=== PATIENT | female | born 1995 | race Two or more races ===

== ENCOUNTER 2020-07-30 13:41 | Outpatient (CLI) | payer OTHER, SELFPAY ==
[2020-07-30] MEDS: TETANUS,DIPHTHERIA,AC PERTUSSIS ADULT (0.5 ML) BOOSTRIX IM (14:28)
== END 2020-07-30 13:42 | disposition home or self-care (01) ==
PROVIDERS: Visit Provider Obstetrics & Gynecology
DX: Z23 Encounter for immunization (principal)
CPT/HCPCS: 90715

== ENCOUNTER 2020-08-21 06:08 | Inpatient (IN) | payer OTHER, SELFPAY ==
[2020-08-21] VITALS (141 sets, daily range): BP systolic 103–161; BP diastolic 50–119; PULSE 68–115; RESP 16; TEMP 36.4–37.2; O2SAT 97–100; BMI 44.2
[2020-08-21 07:05] LABS: Basophils Absolute Auto 0.1 K/mm3 (0.0-0.1); Basophils Percent Auto 0.5 % (0.2-1.2); Eosinophils Absolute Auto 0.2 K/mm3 (0-0.3); Eosinophils Percent Auto 1.5 % (0-4.4); Hematocrit 35.3 % (37.0-47.0); Immature Granulocyte Absolute 0.07 K/mm3 (0.00-0.031); Immature Granulocyte Percent A 0.6 % (0-0.5); Lymphocytes Absolute Auto 2.59 K/mm3 (0.9-3.2); Lymphocytes Percent Auto 23.5 % (18.3-44.2); Mean Corpuscular Hemoglobin 32.3 pg (26-34); Mean Corpuscular Volume 95.1 fl (80-100); Mean Platelet Volume 9.6 fl (7.4-10.4); Monocytes Absolute Auto 0.8 K/mm3 (0.1-0.6); Monocytes Percent Auto 7.1 % (2.6-8.5); Neutrophils Absolute Auto 7.4 K/mm3 (1.3-6.7); Neutrophils Percent Auto 66.8 % (45.5-73.1); Platelet Count Result 279 k/mm3 (150-375); Red Blood Count 3.71 M/mm3 (4.2-5.4); Red Cell Distribution Width 13.5 % (11.5-14.5)
[2020-08-21] MEDS: LACTATED RINGERS 1,000 ML 125 ML IV CONT ×3 (07:10→12:56)
[2020-08-21] MEDS: OXYTOCIN 30 UNITS/NS 500 ML 30 UNITS/500 ML BAG IV CONT (07:10)
[2020-08-21 07:17] LABS: Alanine Aminotransferase 23 U/L (4-35); Albumin Level 3.5 g/dL (3.5-5.1); Alkaline Phosphatase 143 U/L (38-126); Anion Gap 6 mmol/L (8-16); Aspartate Amino Transferase 28 U/L (14-36); Bilirubin,Total 0.2 mg/dL (0.2-1.3); Blood Urea Nitrogen 10 mg/dL (7-17); Calcium 8.8 mg/dL (8.4-10.2); Carbon Dioxide 22 mmol/L (22-30); Chloride 108 mmol/L (98-107); Estimated Glomerular Filt Rate > 60; Glucose 95 mg/dL (65-105); Potassium 3.7 mmol/L (3.4-5.0); Sodium 136 mmol/L (137-145)
[2020-08-21 07:23] LABS: Amphetamine Screen Urine Negative (Negative); Barbiturate Screen Urine Negative (Negative); Benzodiazepines Screen Urine Negative (Negative); Cannabinoid Screen Urine Positive (Negative); Cocaine Screen Urine Negative (Negative); Methadone Screen Urine Negative (Negative); Opiate Screen Urine Negative (Negative); Phencyclidine Screen Urine Negative (Negative)
[2020-08-21 08:06] LABS: HIV 1/2 Ab P24 Ag Result Negative (Negative)
--- NOTE | 2020-08-21 08:56 | WPDANESEPP ---
Anes - Eval Pre Procedure Procedure: labor epidural Date/Time: 08/21/20 08:56 Preop Diagnosis: labor pain Pre Op Diagnosis: Induction of Labor Patient Data Age: 25 Gender: F Height: 5 ft 3 in Weight: 113.4 kg Last Vital Signs Pulse 78 08/21/20 08:30 BP 143/88 H 08/21/20 08:30 Pulse Ox 100 08/21/20 08:55 Allergies Allergy/AdvReac Type Severity Reaction Status Date / Time No Known Allergies Allergy Verified 08/21/20 08:13 Home Medications Medication Instructions Recorded Confirmed Type vitamin no.[id number] 1 cap PO DAILY #90 cap 01/23/20 08/21/20 Rx 28 mg iron-1 mg-200 mg capsule Laboratory Tests 08/21/20 08/21/20 08/21/20 06:49 06:49 06:49 WBC 11.0 K/mm3 H K/mm3 (4.5-10.0) RBC 3.71 M/mm3 L M/mm3 (4.2-5.4) Hgb 12.0 g/dL g/dL (12.0-15.0) Hct 35.3 % L % (37.0-47.0) MCV 95.1 fl fl (80-100) MCH 32.3 pg pg (26-34) MCHC 34.0 g/dl g/dl (32-36) RDW 13.5 % % (11.5-14.5) Plt Count 279 k/mm3 k/mm3 (150-375) MPV 9.6 fl fl (7.4-10.4) Immature Gran % (Auto) 0.6 % H % (0-0.5) Neut % (Auto) 66.8 % % (45.5-73.1) Lymph % (Auto) 23.5 % % (18.3-44.2) Wake % (Auto) 7.1 % % (2.6-8.5) Eos % (Auto) 1.5 % % (0-4.4) Baso % (Auto) 0.5 % % (0.2-1.2) Lymph # (Auto) 2.59 K/mm3 K/mm3 (0.9-3.2) Wake # (Auto) 0.8 K/mm3 H K/mm3 (0.1-0.6) Eos # (Auto) 0.2 K/mm3 K/mm3 (0-0.3) Baso # (Auto) 0.1 K/mm3 K/mm3 (0.0-0.1) Abs Immat Gran (auto) 0.07 K/mm3 H K/mm3 (0.00-0.031) Absolute Neuts (auto) 7.4 K/mm3 H K/mm3 (1.3-6.7) Absolute Nucleated RBC 0.0 K/mm3 K/mm3 (0.0-0.012) Nucleated RBC % 0.0 % % (0.0-0.2) Sodium Potassium Chloride Carbon Dioxide Anion Gap BUN Creatinine Estim Creat Clear Calc Estimated GFR Glucose Calcium Total Bilirubin AST ALT Alkaline Phosphatase Total Protein Albumin Urine Opiates Screen Urine Methadone Screen Ur Barbiturates Screen Ur Phencyclidine Scrn Ur Amphetamine Screen U Benzodiazepines Scrn Urine Cocaine Screen U Cannabinoids Screen RPR Pending HIV 1&2 Ab/P24 Ag 4thGn Negative (Negative) Blood Type Antibody Screen 08/21/20 08/21/20 08/21/20 06:49 06:55 06:58 WBC RBC Hgb Hct MCV MCH MCHC RDW Plt Count MPV Immature Gran % (Auto) Neut % (Auto) Lymph % (Auto) Wake % (Auto) Eos % (Auto) Baso % (Auto) Lymph # (Auto) Wake # (Auto) Eos # (Auto) Baso # (Auto) Abs Immat Gran (auto) Absolute Neuts (auto) Absolute Nucleated RBC Nucleated RBC % Sodium 136 mmol/L L mmol/L (137-145) Potassium 3.7 mmol/L mmol/L (3.4-5.0) Chloride 108 mmol/L H mmol/L (98-107) Carbon Dioxide 22 mmol/L mmol/L (22-30) Anion Gap 6 mmol/L L mmol/L (8-16) BUN 10 mg/dL mg/dL (7-17) Creatinine 0.40 mg/dL L mg/dL (0.7-1.0) Estim Creat Clear Calc Not Reportable Estimated GFR > 60 (59 - ) Glucose 95 mg/dL mg/dL (65-105) Calcium 8.8 mg/dL mg/dL (8.4-10.2) Total Bilirubin 0.2 mg/dL mg/dL (0.2-1.3) AST 28 U/L U/L (14-36) ALT 23 U/L U/L (
--- NOTE | 2020-08-21 12:49 | PM.IMHP ---
H&P: HPI History of Present Illness Date/Time: 08/21/20 12:49 Patient at 39 3/7 weeks admitted for medical induction of labor. LMP 11/17/20 with an EDC 08/24/20 c/w 12 week ultrasound. PNC significant for large weight gain. History of tobacco abuse which she stopped in second trimester. Also history of marijuana use. She was recommended to stop. Labs reviewed. GBS neg. She has been informed of risk benefits alternatives to labor induction vs spontaneous labor. Chief Complaint: Induction of labor. Review of Systems Review of Systems: All systems reviewed & are unremarkable except as noted in HPI and below Constitutional: Constitutional: Reports no additional constitutional complaints and Denies headache(s) Eyes: Eyes: Denies spots in vision ENT: Reports system reviewed and no additional complaints, except as documented and Denies headache(s) Cardiovascular: Cardiovascular: Denies chest pain and Denies dyspnea Respiratory: Respiratory: Denies dyspnea Gastrointestinal: Gastrointestinal: Reports no additional gastrointestinal complaints Genitourinary: Genitourinary: Reports amenorrhea Musculoskeletal: Musculoskeletal: Reports no additional musculoskeletal complaints Integumentary/Breasts: Skin/Breast: Denies breast mass and Denies rash Neurologic: Denies headache(s) Psychiatric: Psychiatric: Reports no additional psychiatric complaints PMFSH Past Medical History Medical History (Updated 08/22/20 @ 05:48 by Mohit Ren MD) Anemia Asthma Surgical History Surgical History S/P cholecystectomy Family History Family History Other No pertinent family history Social History Social History Smoking status: Current every day smoker Smoking end date: 11/18/19 Additional smoking assessment comments: Pt states I don't smoke cigarettes but I do smoke marijuana Alcohol intake: former Substance use: current Substance use type: marijuana Gender identity (if verbalized by the patient): Female Spiritual care concerns: No Meds Home Medications and Allergies Home Medications Medication Instructions Recorded Confirmed Type vitamin no.[id number] 1 cap PO DAILY #90 cap 01/23/20 08/21/20 Rx 28 mg iron-1 mg-200 mg capsule Allergies Allergy/AdvReac Type Severity Reaction Status Date / Time No Known Allergies Allergy Verified 08/21/20 08:13 Vital Signs Vital Signs - 24 hr 08/21/20 06:39 08/21/20 06:40 08/21/20 07:00 Temperature 98.1 F Pulse Rate 94 85 Blood Pressure 152/91 H 140/75 Pulse Oximetry 08/21/20 07:30 08/21/20 07:56 08/21/20 08:00 Temperature Pulse Rate 80 92 Blood Pressure 130/72 147/83 H Pulse Oximetry 98 08/21/20 08:01 08/21/20 08:04 08/21/20 08:09 Temperature Pulse Rate Blood Pressure Pulse Oximetry 100 97 100 08/21/20 08:14 08/21/20 08:19 08/21/20 08:24 Temperature Pulse Rate Blood Pressure Pulse Oximetry 99 100 100 08/21/20 08:29 08/21/20 08:30 08/21/20 08:34 Temperature 98.1 F Pulse Rate 78 Blood Pressure 143/88 H Pulse Oximetry 100 100 08/21/20 08:39 08/21/20 08:44 08/21/20 08:55 Temperature Pulse Rate Blood Pressure Pulse Oximetry 100 99 100 08/21/20 09:00 08/21/20 09:02 08/21/20 09:07 Temperature Pulse Rate 88 Blood Pressure 151/94 H Pulse Oximetry 100 100 100 08/21/20 09:13 08/21/20 09:18 08/21/20 09:19 Temperature Pulse Rate Blood Pressure Pulse Oximetry 100 100 100 08/21/20 09:24 08/21/20 09:29 08/21/20 09:31 Temperature Pulse Rate 73 81 Blood Pressure 147/92 H 138/86 Pulse Oximetry 100 100 08/21/20 09:33 08/21/20 09:36 08/21/20 09:38 Temperature Pulse Rate 80 79 76 Blood Pressure 154/83 H 156/88 H 155/93 H Pulse Oximetry 100 100
[2020-08-21] MEDS: ONDANSETRON INJ 4 MG/2 ML VIAL IV PUSH (12:54)
[2020-08-21] MEDS: OXYTOCIN 30 UNITS/NS 500 ML 30 UNITS/500 ML BAG 125 UNITS IV CONT (16:10)
[2020-08-21] MEDS: IBUPROFEN 600 MG TABLET PO ×2 (18:04→23:54)
[2020-08-21] MEDS: WITCH HAZEL 40 PADS 1 PAD TOPICAL (18:05)
[2020-08-21] MEDS: BENZOCAINE 20% AER SPR (*SP) 56 GM CAN 1 SPRAY TOPICAL (18:05)
--- NOTE | 2020-08-21 19:03 | OBPPTRN ---
Patient transferred to post room #290 via wheelchair. Support person present. Oriented to unit, room, information board, rooming in, admission packet and security measures. Patient verbalizes understanding.
[2020-08-21] MEDS: ACETAMINOPHEN 325 MG TABLET 650 MG PO (19:05)
[2020-08-22] VITALS: BP 140/74; PULSE 84; RESP 16; TEMP 36.5; O2SAT 99
[2020-08-22] MEDS: ACETAMINOPHEN 325 MG TABLET 650 MG PO ×2 (02:59→09:52)
[2020-08-22 03:23] LABS: Hematocrit 32.3 % (37.0-47.0); Hemoglobin 10.8 g/dL (12.0-15.0)
[2020-08-22 03:30] VITALS: BP 140/76; PULSE 93; RESP 16; TEMP 36.7; O2SAT 99
--- NOTE | 2020-08-22 05:53 | PM.OBPNLAB ---
Pain Control Date/time seen: Cat 1, irregular mild ctx, cervix /-2 AROM clear. Continue Pitocin.
--- NOTE | 2020-08-22 05:54 | PM.OBPNVD ---
OB - PN: Subj Subjective Date/time seen: 08/21/20 1220 Cat 1 tracing, cervix /2. Continue Pitocin. OB - PN: Obj Data Labs CBC & Chem 7: 08/22/20 03:12 08/21/20 06:55 Labs: Laboratory Results - last 24 hr 08/21/20 08/21/20 08/21/20 06:49 06:49 06:49 WBC 11.0 H RBC 3.71 L Hgb 12.0 Hct 35.3 L MCV 95.1 MCH 32.3 MCHC 34.0 RDW 13.5 Plt Count 279 MPV 9.6 Immature Gran % (Auto) 0.6 H Neut % (Auto) 66.8 Lymph % (Auto) 23.5 Villalba % (Auto) 7.1 Eos % (Auto) 1.5 Baso % (Auto) 0.5 Lymph # (Auto) 2.59 [place]ba # (Auto) 0.8 H Eos # (Auto) 0.2 Baso # (Auto) 0.1 Abs Immat Gran (auto) 0.07 H Absolute Neuts (auto) 7.4 H Absolute Nucleated RBC 0.0 Nucleated RBC % 0.0 Sodium Potassium Chloride Carbon Dioxide Anion Gap BUN Creatinine Estim Creat Clear Calc Estimated GFR Glucose Uric Acid Calcium Total Bilirubin AST ALT Alkaline Phosphatase Total Protein Albumin Urine Opiates Screen Urine Methadone Screen Ur Barbiturates Screen Ur Phencyclidine Scrn Ur Amphetamine Screen U Benzodiazepines Scrn Urine Cocaine Screen U Cannabinoids Screen HIV 1&2 Ab/P24 Ag 4thGn Negative Blood Type A Positive Antibody Screen Negative 08/21/20 08/21/20 08/21/20 06:49 06:55 06:58 WBC RBC Hgb Hct MCV MCH MCHC RDW Plt Count MPV Immature Gran % (Auto) Neut % (Auto) Lymph % (Auto) [place] % (Auto) Eos % (Auto) Baso % (Auto) Lymph # (Auto) [place] # (Auto) Eos # (Auto) Baso # (Auto) Abs Immat Gran (auto) Absolute Neuts (auto) Absolute Nucleated RBC Nucleated RBC % Sodium 136 L Potassium 3.7 Chloride 108 H Carbon Dioxide 22 Anion Gap 6 L BUN 10 Creatinine 0.40 L Estim Creat Clear Calc Not Reportable Estimated GFR > 60 Glucose 95 Uric Acid 4.0 Calcium 8.8 Total Bilirubin 0.2 AST 28 ALT 23 Alkaline Phosphatase 143 H Total Protein 7.0 Albumin 3.5 Urine Opiates Screen Negative Urine Methadone Screen Negative Ur Barbiturates Screen Negative Ur Phencyclidine Scrn Negative Ur Amphetamine Screen Negative U Benzodiazepines Scrn Negative Urine Cocaine Screen Negative U Cannabinoids Screen Positive A HIV 1&2 Ab/P24 Ag 4thGn Blood Type Antibody Screen 08/22/20 03:12 WBC RBC Hgb 10.8 L Hct 32.3 L MCV MCH MCHC RDW Plt Count MPV Immature Gran % (Auto) Neut % (Auto) Lymph % (Auto) Vill[place] % (Auto) Eos % (Auto) Baso % (Auto) Lymph # (Auto) Vill[place] # (Auto) Eos # (Auto) Baso # (Auto) Abs Immat Gran (auto) Absolute Neuts (auto) Absolute Nucleated RBC Nucleated RBC % Sodium Potassium Chloride Carbon Dioxide Anion Gap BUN Creatinine Estim Creat Clear Calc Estimated GFR Glucose Uric Acid Calcium Total Bilirubin AST ALT Alkaline Phosphatase Total Protein Albumin Urine Opiates Screen Urine Methadone Screen Ur Barbiturates Screen Ur Phencyclidine Scrn Ur Amphetamine Screen U Benzodiazepines Scrn Urine Cocaine Screen U Cannabinoids Screen HIV 1&2 Ab/P24 Ag 4thGn Blood Type Antibody Screen OB - PN A/P Time Spent With Patient Time: Total time spent is greater than 50% in coordination of care (as documented) at patient's floor/unit and/or counseling patient:
--- NOTE | 2020-08-22 05:55 | PM.OBPRVD ---
OB - Delivery Note Procedure Delivery date: 08/21/20 Procedure: Spontaneous vaginal delivery. Intrapartal events: None Induction method: per pitocin protocol Delivery augmentation: rupture of membranes Delivery monitor: external FHT Route of delivery: Episiotomy description: None Laceration Description: None Quantitative Blood Loss (ml): 150 Anesthesia type: Epidural Disposition: floor Complications: None Narrative: Patient admitted on the morning of 08/22/20. She was started on Pitocin. She had assisted rupture of membranes at approximately 0800 clear fluid. She continued to progress in labor. She requested an epidural. She continued to progress in labor. She dilated to complete. She pushed once and delivered a male at 1540. Infant was vigorously crying and placed on maternal abdomen. Delayed cord clmaping for 45 seconds until the cord was apulsatile. Placenta delivered spontaneously was intact. No lacerations. Patient tolerated procedure well. Baby Date of : 08/21/20 Time of : 15:40 Weeks of gestation at delivery: 39 Infant gender: Male Weight (pounds): 8 Weight (ounces): 0 presentation: vertex position: Right Occiput Anterior Placenta delivery description: Spontaneous cord vessel description: Delayed Cord Clamping score one minute: 9 score five minutes: 9
--- NOTE | 2020-08-22 07:52 | WPDANLDPN2 ---
Anes-Prog Note L&D Date/Time: 08/22/20 07:52 Comfortable throughout: labor and delivery Neuraxial method: epidural Epidural/Spinal procedure site: clean & non-tender Neuro status: Neuro function grossly intact. Cardiovascular status: normal Respiratory status: normal Airway patency: baseline Mental status: baseline Post-Op hydration status: normal Vital Signs: Last Vital Signs Temp 36.7 C 08/22/20 03:30 Pulse 93 08/22/20 03:30 Resp 16 08/22/20 03:30 BP 140/76 08/22/20 03:30 Pulse Ox 99 08/22/20 03:30 Pain score (VAS): 06/10 I/O: Intake & Output 08/21/20 08/21/20 08/22/20 15:59 23:59 07:59 Intake Total 1999 Balance 1999 Post-procedural complaints: none Patient feedback: Patient satisfied with anesthetic care.
[2020-08-22 07:55] LABS: Rapid Plasma Reagin Non-Reactive (NonReactive)
[2020-08-22 08:20] VITALS: BP 146/85; PULSE 97; RESP 16; TEMP 37.3; O2SAT 100
--- NOTE | 2020-08-22 08:32 | PM.OBPNVD ---
OB - PN: Subj Subjective Date/time seen: 08/22/20 08:32 No headaches scotomata or RUQ pain. Patient comments: pain well controlled, tolerating diet and other (Decreasing lochia.) [place] baby status: doing well and nursing well [place] feeding status: exclusively breast feeding OB - PN: Obj Data Labs CBC & Chem 7: 08/22/20 03:12 08/21/20 06:55 Labs: Laboratory Results - last 24 hr 08/21/20 08/21/20 08/22/20 06:49 06:49 03:12 Hgb 10.8 L Hct 32.3 L Uric Acid 4.0 RPR Non-reactive OB - PN A/P Assessment and Plan (1) Gestational [-induced] hypertension without significant proteinuria, complicating childbirth: Code(s): O13.4 - Gestational [-induced] hypertension without significant proteinuria, complicating childbirth Status: Acute Assessment and Plan: She is asymptomatic. Blood pressures have sustained elevated. Will check labs. Consider antihypertensive medication depending on lab results and monitoring blood pressures. Plan day: 1 Plan: routine care Comments: Routine care. Time Spent With Patient Time: Total time spent is greater than 50% in coordination of care (as documented) at patient's floor/unit and/or counseling patient: Exam Psych: Affect: normal affect Other: Abd: fundus firm below umbilicus, nontender Perineum: healing Ext: nontender DTR 1-2+
--- NOTE | 2020-08-22 09:20 | PC.NURSE ---
Consult with pt., mother is attempting to wake infant for feeding. Demonstrated stimulation techniques to wake. Infant is sleepy with no feeding cues noted. Attempt for 5 minutes. Suggested skin to skin and attempt again in 30 minutes.
[2020-08-22] MEDS: MULTIVIT/MIN/PREN/FOL AC/IRON TABLET 1 TAB PO (09:52)
--- NOTE | 2020-08-22 09:55 | PC.NURSE ---
Mother called out for assist with feeding. Consulted with patient, mother reports has fed well most feedings. Mother voices concerns is sleepy at feedings and will nurse and remans sleeping. Discussed is is normal for the to be awoken for feeding and stimulated while feeding to keep awake and nursing. can look asleep as long as effective suckling is noted. Reviewed feeding cues, frequencies, duration of feedings, feeding elimination flow sheet, and signs of adequate intake. Demonstrated stimulation techniques to wake for feeding. Assisted with infant to breast. Reviewed positioning/alignment in cross cradle, holding breast in U hold and guided asymmetrical latch on. Infant was able to latch within a few attempts. Infant nursed eagerly, with steady draws and frequent swallowing noted for bursts followed with long pausing. Reviewed signs of a correct latch, effective nursing and suck swallow ratio. Infant was able to maintain latch. Mother reported slight tenderness at times, infant had slipped to shallow latch. Demonstrated how to adjust latch more deeply while feeding. Mother quickly reports she can feel is latched more deeply and has minimal tenderness. Suggested to stimulate while feeding to keep awake and nursing effectively for increased stimulation and increased intake. FOB at bedside assisting with keeping awake and nursing. Instructed mother to call out for RN assistance if she is unable to latch for feeding or she has discomfort with nursing.
--- NOTE | 2020-08-22 11:08 | PCCCNOTE ---
Addendum entered by Olivia Olivia 08/22/20 16:19: 1600: CC has been informed that there will be no investigation for pt. CC informed pt.'s RN so she can tell pt. Original Note: Care Coordination met with pt., FOB, and baby this morning to discuss discharge planning. Pt.'s current D/C plan is to return home with her family. Pt. has a three year old son at home. Her parents are currently watching pt.'s other child. Pt. and FOB confirm that they have everything they need to safely bring baby home. They confirm that they have a place for baby to sleep, a car seat, clothing, and diapers. Pt. informs CC that she will continue to breast feed baby once home. She is current with [facility] and confirms baby has a gift shop manager and an upcoming appointment. Pt. has no concerns about bringing baby home and no prior DCFS cases. Pt. and baby both tested positive for Marijuana at time of admission. Baby's meconium is currently pending. Pt. confirms that she used Marijuana throughout her to assist with nausea and pain caused by the . Pt. understands that CC will have to report the drug use to DCFS, she has no further questions at this time. An online report was made and pt.'s pending report number is [id number]. Will follow.
[2020-08-22 11:18] LABS: Mean Platelet Volume 9.9 fl (7.4-10.4); Platelet Count Result 226 k/mm3 (150-375)
[2020-08-22 12:07] LABS: Alanine Aminotransferase 24 U/L (4-35); Aspartate Amino Transferase 31 U/L (14-36); Estimated CRCL calculation 150 ml/min; Estimated Glomerular Filt Rate > 60
[2020-08-22 12:30] VITALS: BP 145/101; PULSE 94; RESP 20; TEMP 36.8; O2SAT 99
--- NOTE | 2020-08-22 12:52 | PM.OBPNVD ---
OB - PN: Subj Subjective Date/time seen: 08/22/20 12:52 BP this afternoon elevated. She denies headache, scotomata or RUQ pain. Labs reviewed from today. Recommend starting antihypertensive. Discussed with her the hypertension diagnosis and treatment. Discussed possible side effects of medication. She voices understanding. OB - PN: Obj Data Labs CBC & Chem 7: 08/22/20 03:12 08/22/20 11:46 Labs: Laboratory Results - last 24 hr 08/21/20 08/21/20 08/22/20 06:49 06:49 03:12 Hgb 10.8 L Hct 32.3 L Plt Count MPV Creatinine Estim Creat Clear Calc Estimated GFR Uric Acid 4.0 AST ALT RPR Non-reactive 08/22/20 08/22/20 03:12 11:46 Hgb Hct Plt Count 226 MPV 9.9 Creatinine 0.60 L Estim Creat Clear Calc 150 Estimated GFR > 60 Uric Acid AST 31 ALT 24 RPR OB - PN A/P Time Spent With Patient Time: Total time spent is greater than 50% in coordination of care (as documented) at patient's floor/unit and/or counseling patient:
[2020-08-22] MEDS: IBUPROFEN 600 MG TABLET PO (16:44)
[2020-08-22] MEDS: NIFEdipine 30 MG TAB.ER.24 PO (16:44)
[2020-08-22 19:10] VITALS: BP 142/83; PULSE 113; RESP 16; TEMP 36.8; O2SAT 100
[2020-08-22 23:40] VITALS: BP 144/89; PULSE 94; RESP 16; TEMP 36.8; O2SAT 100
[2020-08-23] MEDS: ACETAMINOPHEN 325 MG TABLET 650 MG PO (03:27)
[2020-08-23 03:30] VITALS: BP 149/80; PULSE 106; RESP 16; TEMP 36.5; O2SAT 100
--- NOTE | 2020-08-23 08:27 | PM.OBPNVD ---
OB - PN: Subj Subjective Date/time seen: 08/23/20 08:27 She denies headache scotomata or RUQ pain. No leg pain. Patient comments: pain well controlled, tolerating diet and other (Decreasing lochia.) baby status: doing well and nursing well feeding status: exclusively breast feeding OB - PN: Obj Data Labs CBC & Chem 7: 08/22/20 03:12 08/22/20 11:46 Labs: Laboratory Results - last 24 hr 08/22/20 08/22/20 03:12 11:46 Plt Count 226 MPV 9.9 Creatinine 0.60 L Estim Creat Clear Calc 150 Estimated GFR > 60 AST 31 ALT 24 OB - PN A/P Assessment and Plan (1) Gestational [-induced] hypertension without significant proteinuria, complicating childbirth: Code(s): O13.4 - Gestational [-induced] hypertension without significant proteinuria, complicating childbirth Status: Acute Assessment and Plan: Blood pressures stable. No severe range readings or symptoms of pre-eclampsia. Will discharge home on Procardia. Discussed hypertension precautions. Plan day: 1 Plan: routine care Comments: Patient doing well. Will discharge home today. Time Spent With Patient Time: Total time spent is greater than 50% in coordination of care (as documented) at patient's floor/unit and/or counseling patient: Exam Const: General: comfortable and no acute distress Eyes: General: appearance normal, both eyes and all related structures Resp: Effort & Inspection: normal respiratory effort GI: Inspection: normal to inspection Other: nontender Psych: Affect: normal affect Other: Abd: fundus firm below umbilicus, nontender Perineum: healing Ext: nontender
--- NOTE | 2020-08-23 08:29 | PM.OBDSVD ---
DS: Admitting Diagnosis Admitting Diagnosis Admitting Diagnosis: Medical induction of labor. DS: Discharge Diagnosis Discharge Diagnosis (1) Elective induction of labor planned: Status: Acute (2) Gestational [-induced] hypertension without significant proteinuria, complicating childbirth: Code(s): O13.4 - Gestational [-induced] hypertension without significant proteinuria, complicating childbirth Status: Acute OB - DS: Summary OB Procedures : None OB Procedures Intrapartum: Spontaneous Vag Delivery OB Procedures: : None Peripartum Data Delivery Method: Natural Vaginal Laceration Description: None Procedures: Spontaneous vaginal delivery. complications: other ( hypertension.) Time Spent with Patient Time attestation: Total time spent providing and/or coordinating discharge services: Exam Const: General: comfortable and no acute distress Eyes: General: appearance normal, both eyes and all related structures Resp: Effort & Inspection: normal respiratory effort GI: Inspection: normal to inspection Extrem: General: normal to inspection Other: neg Homans, trace edema bilat Psych: Appearance: grossly normal DS: Data Data Completed and Pending Labs on day of discharge: Labs from last 24 hours 08/22/20 08/22/20 11:46 03:12 Plt Count 226 MPV 9.9 Creatinine 0.60 L Estim Creat Clear Calc 150 Estimated GFR > 60 AST 31 ALT 24 Additional Comments Additional comments: Patient admitted for medical induction of labor on 08/21. Labor significant for elevated blood pressures. No signs or symptoms of pre-eclampsia. Lab evaluation normal. She had an uncomplicated vaginal delivery. She continued to have elevated blood pressures into day 1 and repeat labs performed that were normal. She did not have any signs or symptoms of severe pre-eclampsia. She was started on Procardia 30mg XL daily for hypertension. Blood pressure readings prior to discharge 140s/80s. She was discharged home with hypertension precautions and post vaginal delivery precautions. Instructed to make follow up appointment for one week. Instructed to continue daily PNV. Discharge Plan Discharge Attending physician on discharge: Mohit Ren Consulting providers: Yudith Crump Discharging Clinician: Mohit Ren Anticipated Discharge Date/Time: 08/23/20 08:37 Patient Disposition: Home, Self-Care Activity: may shower and pelvic rest Diet: regular Discharge Instructions: Pelvic rest for 4-6 weeks. May take over the counter Ibuprofen or Tylenol for pain. Call if saturating more than a pad an hour, leg redness, pain and swelling, temperature>100.4. No strenuous activity. Call for severe headache, spots in vision, right upper quadrant pain. Patient Instructions: Antibiotic Form Stand Alone Forms: General Discharge Information Follow-up/Referrals: Mohit Ren MD [Physician] - 1 Week (Call for appointment) Discharge Medications: New nifedipine [Procardia XL] 30 mg Tablet Extended Release 24hr 30 mg PO QAM Qty: 30 RF: 0 Continued NON FOOD RECEIVING CLERK-PNV-DHA 28 mg iron- 1 mg-200 mg capsule 1 cap PO DAILY Qty: 90 RF: 1 Date of admission: 08/21/20 06:08 Primary Care Provider: PHYSICIAN,MANAGER FUND Admitting Provider: Mohit Ren Attending physician on admission: Mohit Ren Condition: Stable
[2020-08-23 08:30] VITALS: BP 145/100; PULSE 106; RESP 18; TEMP 37.3; O2SAT 100
[2020-08-23] MEDS: MULTIVIT/MIN/PREN/FOL AC/IRON TABLET 1 TAB PO (09:23)
[2020-08-23] MEDS: NIFEdipine 30 MG TAB.ER.24 PO (09:23)
[2020-08-24 08:51] VITALS: BP 144/93; PULSE 97; RESP 20; TEMP 37.1; O2SAT 99
== END 2020-08-23 12:58 | disposition home or self-care (01) | DRG 560 ==
LOC: ANHLDR 06:12 → ANHOB2 19:11
PROVIDERS: Admitting Provider Obstetrics & Gynecology; Visit Provider Obstetrics & Gynecology
DX: O13.4 Gestational [pregnancy-induced] hypertension without significant proteinuria, complicating childbirth (principal); Z37.0 Single live birth; Z3A.39 39 weeks gestation of pregnancy; O99.324 Drug use complicating childbirth; F12.90 Cannabis use, unspecified, uncomplicated; O99.52 Diseases of the respiratory system complicating childbirth; J45.909 Unspecified asthma, uncomplicated; O99.02 Anemia complicating childbirth; D64.9 Anemia, unspecified
CPT/HCPCS: 36415; 80053; 80307; 82565; 84450; 84460; 84550; 85014; 85018; 85025; 85049; 86592; 86703; 86850; 86900; 86901; A9270; G0432; J2405; J2590; J2795; J7120

== ENCOUNTER 2022-04-28 10:11 | Emergency (ER) | payer OTHER, SELFPAY ==
[2022-04-28 11:07] VITALS: BP 117/71; PULSE 78; RESP 16; TEMP 36.3; O2SAT 100
--- NOTE | 2022-04-28 11:12 | ED.EAR ---
HPI - Ear Problem General Chief complaint: Ear Stated complaint: rt ear pain Time Seen by Provider: 04/28/22 11:10 Source: patient Mode of arrival: ambulatory Limitations: no limitations History of Present Illness HPI Narrative: Sara is a 26-year-old female patient presenting to the clinic today with complaints of right-sided ear pain x1 day. She reports that her symptoms began yesterday. Did put some peroxide in her ear in this help alleviate some of her pain. She also reports that she has been nasally congested Related Data Allergies Allergy/AdvReac Type Severity Reaction Status Date / Time No Known Allergies Allergy Verified 04/28/22 11:21 Review of Systems Review of Systems: Pertinent positives per HPI. Patient denies any fever, chills, rash, headache, visual changes, dizziness, shortness of breath, chest pain, palpitations, nausea, vomiting, diarrhea, constipation, abdominal pain, or any urinary issues. PMFSH Past Medical History Medical History Anemia Asthma Gestational hypertension Vaginal delivery x2 Surgical History Surgical History S/P cholecystectomy Family History Family History Other No pertinent family history Social History Social History Smoking status: Former smoker Smoking end date: 11/18/19 Additional smoking assessment comments: Pt states I don't smoke cigarettes but I do smoke marijuana Alcohol intake: former Substance use: current Substance use type: marijuana Gender identity (if verbalized by the patient): Female Spiritual care concerns: No Comments At the time of my signature, I reviewed and agree with the nursing past medical, surgical, social, and family history. There is no relevant family history pertinent to the patient complaint. Exam Narrative: General: Well-developed, well nourished, in no apparent distress Head: Normocephalic, atraumatic Eyes: Pupils equally round and reactive to light bilaterally, EOM intact, sclera and conjunctive clear, no discharge, lids normal Ears: left TMs intact and dull, right TM intact, mild bulging, fluid-filled, ear canals clear, no drainage, grossly hearing normal. Nose: Nares patent, clear nasal discharge, no inflammation, no sinus tenderness. Mouth: Oral pharynx without lesions or masses, good dentition, MMM. Neck: Supple, trachea midline, no enlargement of anterior or posterior cervical nodes, no thyroid masses or goiter palpable. Cardio: Regular rate and rhythm, s1 and s2 normal, no murmur appreciated. Resp: Clear to auscultation bilaterally, no rhonchi, rales, wheezing or rubs Course Course Emergency Course: Portions of this record may have been created with voice recognition software. Level of Care: Express Care Visit Vital Signs Vital signs: Vital Signs Temperature 36.3 C L 04/28/22 11:07 Pulse Rate 78 04/28/22 11:07 Respiratory Rate 16 04/28/22 11:07 Blood Pressure 117/71 04/28/22 11:07 Pulse Oximetry 100 04/28/22 11:07 Oxygen Delivery Room Air 04/28/22 11:07 Temperature 36.3 C L 04/28/22 11:07 Pulse Rate 78 04/28/22 11:07 Respiratory Rate 16 04/28/22 11:07 Blood Pressure 117/71 04/28/22 11:07 Pulse Oximetry 100 04/28/22 11:07 Oxygen Delivery Room Air 04/28/22 11:07 Vital signs reviewed Medical Decision Making MDM Narrative Medical decision making narrative: At the time of visit patient is resting comfortably on the exam table. I suspect patient has serous otitis of the right ear. Prescription for prednisone was sent to pharmacy. Supportive measures were discussed with the patient she voiced understanding discharge instructions agrees to treatment plan. Differential Diagnosis Differential Diag
== END 2022-04-28 11:20 | disposition home or self-care (01) ==
PROVIDERS: Emergency Provider Nurse Practitioner Family; PCP Nurse Practitioner Family
DX: H65.01 Acute serous otitis media, right ear (principal); Z87.891 Personal history of nicotine dependence
CPT/HCPCS: 99213; G0463

== ENCOUNTER 2022-07-29 16:09 | Emergency (ER) | payer OTHER, SELFPAY ==
[2022-07-29 16:31] VITALS: BP 134/77; PULSE 92; RESP 18; TEMP 36.1; O2SAT 100
--- NOTE | 2022-07-29 16:49 | ED.URI ---
HPI - URI/Sore Throat General Chief Complaint: Upper Respiratory Infection Stated Complaint: cough,bilateral ear discomfort Time Seen by Provider: 07/29/22 16:50 Source: patient, RN notes reviewed and old records reviewed Mode of arrival: ambulatory Limitations: no limitations History of Present Illness HPI Narrative: 27 year old female who presents to [facility] care with complaints of 2 week duration of cough with congestion and runny nose, denies any known fevers, chills, or body aches.Patient reports that for past 3 days she has felt better, wants checked to make sure she is not contagious. Patient reports that she has been taking nissa seltzer day time and night time cold medication.Patient denies any shortness of breath or any nausea,vomiting or diarrhea. MD elicited complaint: cough, rhinorrhea and nasal congestion Onset (ago): week(s) (2) Consistency: improved Description of mucous: clear Able to tolerate fluids by mouth: Yes Treatments prior to arrival: other (nissa seltzer cold meds) Related Data Allergies Allergy/AdvReac Type Severity Reaction Status Date / Time No Known Allergies Allergy Verified 07/29/22 16:35 Review of Systems Review of Systems: CONSTITUTIONAL: Denies malaise, chills, sweats, or fever. EYES: Denies visual changes, redness, or discharge. ENT: Reports rhinorrhea, congestion, sinus pain, no otalgia, no sore throat. CARDIOVASCULAR: Denies chest pain, palpitations, or edema. RESPIRATORY: Reports cough.? Denies dyspnea. GASTROINTESTINAL: Denies abdominal pain, nausea, vomiting, diarrhea SKIN: Denies rash or itching. MUSCULOSKELETAL: Denies myalgia. NEUROLOGIC: Denies headache. All systems reviewed & are unremarkable except as noted in HPI and below PMFSH Past Medical History Medical History Anemia Asthma Gestational hypertension Vaginal delivery x2 Surgical History Surgical History S/P cholecystectomy Family History Family History Other No pertinent family history Social History Social History Smoking status: Former smoker Smoking end date: 11/18/19 Additional smoking assessment comments: Pt states I don't smoke cigarettes but I do smoke marijuana Alcohol intake: former Substance use: current Substance use type: marijuana Gender identity (if verbalized by the patient): Female Spiritual care concerns: No Comments At time of signature, agree with nursing past medical, surgical, social and family history. There is no relevant family history pertinent to the presenting complaint Exam Narrative: GENERAL: Well-appearing, well-nourished, and in no acute distress. HEAD: Normocephalic EYES: PERRLA, conjunctivae clear ENT: Nares clear, turbinates edematous and erythematous, clear discharge. Mucous membranes moist. TM pearly shi with dull light reflex bilaterally; no tragal tenderness. Oropharynx erythematous without lesions. Tonsils not enlarged and without exudate, no drooling, no hoarseness, no trismus, uvula midline.post nasal drainage NECK: Supple. No lymphadenopathy CHEST: Clear to auscultation, breath sounds equal. No wheezing, rhonchi, rales, or stridor. No respiratory distress, speaks in full sentences.cough, SA02 100% on room air HEART: Regular rate and rhythm. No murmur heard. SKIN: Warm, dry, no rash. NEURO: Alert and oriented x3. PSYCH: Normal mood and affect Course Course Emergency Course: Patient is aware of diagnosis, understands and agrees to treatment plan.? Anticipatory guidance given.? Patient agrees to follow-up as directed and is aware of reasons to seek care at the emergency department. Portions of this record may have been created with voice recognition software Level of Care: [facility] Care Visit V
== END 2022-07-29 17:20 | disposition home or self-care (01) ==
PROVIDERS: Emergency Provider Registered Nurse
DX: J06.9 Acute upper respiratory infection, unspecified (principal); Z87.891 Personal history of nicotine dependence
CPT/HCPCS: 99213; G0463